=== PATIENT | male | born 1995 | race Caucasian/White ===

== ENCOUNTER 2017-07-19 11:00 | Emergency (ER) | payer MEDICAID | END 2017-07-19 11:41 | disposition home or self-care (01) | LOC: FTE 11:00 → E/R 11:41 | DX: J06.9 Acute upper respiratory infection, unspecified (principal) | CPT/HCPCS: 99283; Z7502 ==

== ENCOUNTER 2017-07-29 05:36 | Emergency (ER) | payer MEDICAID ==
[2017-07-29] MEDS: TETRACAINE 0.5% 4 ML OPH RIGHT EYE (06:18)
[2017-07-29] MEDS: FLUORESCEIN STRIP RIGHT EYE (06:18)
[2017-07-29] MEDS: HYDROCODONE/APAP (5/325) TAB PO (06:18)
[2017-07-29] MEDS: IBUPROFEN 600 MG TAB PO (06:19)
[2017-07-29] MEDS: CIPROFLOXACIN 0.3% 2.5 ML OPH LEFT EYE (06:39)
== END 2017-07-29 06:45 | disposition home or self-care (01) ==
LOC: FTE 05:36
DX: H16.002 Unspecified corneal ulcer, left eye (principal)
CPT/HCPCS: 99283; Z7502

== ENCOUNTER 2017-09-29 09:02 | Emergency (ER) | payer MEDICAID | END 2017-09-29 09:50 | disposition home or self-care (01) | LOC: FTE 09:02 | DX: J02.9 Acute pharyngitis, unspecified (principal) | CPT/HCPCS: 99283 ==

== ENCOUNTER 2018-05-12 04:00 | Emergency (ER) | payer OTHER, MEDICAID | END 2018-05-12 07:37 | disposition home or self-care (01) | LOC: FTE 04:00 | DX: T16.2XXA Foreign body in left ear, initial encounter (principal); X58.XXXA Exposure to other specified factors, initial encounter; Y92.9 Unspecified place or not applicable | CPT/HCPCS: 69200; 99283-25 ==